=== PATIENT | male | born 1995 | race Caucasian/White ===

== ENCOUNTER 2017-03-15 10:49 | Emergency (ER) | payer MEDICAID ==
[~2017-03-15] VITALS: Ht 172.7 cm; Wt 72.6 kg
[2017-03-15 11:11] VITALS: BP 127/81
--- NOTE | 2017-03-15 12:50 | NUR ---
Patient ambulated to bed 03.
--- NOTE | 2017-03-15 12:59 | NUR ---
PATIENT PRESENTS TO ED WITH umbilical region pain radiating straight back, sharp pain . PT STATES +nausea, no emesis; SKIN IS PINK/WARM/DRY; AAOX4 WITH EVEN AND STEADY GAIT; LUNGS CLEAR BL; HR EVEN AND REGULAR; PT DENIES ANY FEVER, CP, SOB, OR COUGH AT THIS TIME; PATIENT STATES PAIN OF 8/10 AT THIS TIME; VSS; PATIENT POSITIONED FOR COMFORT; HOB ELEVATED; BEDRAILS UP X2; BED DOWN. ER MD MADE AWARE OF PT STATUS.
--- NOTE | 2017-03-15 13:44 | NUR ---
Dr. Sifuentes evaluating patient at bedside.
[2017-03-15] MEDS ORDERED: KETOROLAC 30 MG/ML VIAL IVP ONE (13:50)
[2017-03-15] MEDS ORDERED: ONDANSETRON 4 MG/2 ML VIAL IVP ONE (13:50)
[2017-03-15] MEDS ORDERED: NACL 0.9% 1,000 ML IV ONE (13:50)
[2017-03-15] MEDS ORDERED: HYDROmorphone 1 MG/ML AMP IVP ONE (13:50)
--- NOTE | 2017-03-15 14:06 | NUR ---
Patient going to CT via [facility].
--- NOTE | 2017-03-15 14:14 | NUR ---
Patient back from CT via [facility].
--- NOTE | 2017-03-15 14:16 | NUR ---
pt holding conversation on cell phone---pt states no pain at this time. awaits ct read
--- NOTE | 2017-03-15 15:03 | NUR ---
pt is up for dc but waiting for md to print out dc papers
[2017-03-15 16:01] VITALS: BP 129/77
--- NOTE | 2017-03-15 16:01 | NUR ---
Patient discharged with v/s stable. Written and verbal after care instructions given and explained. Patient alert, oriented and verbalized understanding of instructions. Ambulatory with steady gait. All questions addressed prior to discharge. ID band removed. Patient advised to follow up with PMD. Rx of cipro/percocet/zofran given. Patient educated on indication of medication including possible reaction and side effects. Opportunity to ask questions provided and answered.
== END 2017-03-15 16:01 | disposition home or self-care (01) ==
LOC: MED 10:49
DX: M51.26 Other intervertebral disc displacement, lumbar region (principal); N39.0 Urinary tract infection, site not specified
CPT/HCPCS: 36415; 74176; 80053; 81001; 82150; 83690; 85025; 87491; 96361; 96374; 96375; 99285; J1170; J1885; J2405

== ENCOUNTER 2017-03-15 23:26 | Emergency (ER) | payer MEDICAID ==
[~2017-03-15] VITALS: Ht 175.3 cm; Wt 72.6 kg
[2017-03-16 01:20] LABS: MEAN CORPUSCULAR HEMOGLOBIN 30 pg (27-31); MEAN CORPUSCULAR HGB CONC 33 g/dL (33-37); MEAN CORPUSCULAR VOLUME 91 fL (80-94); PLATELET COUNT (AUTO) 227 K/uL (140-450); RED BLOOD CELL COUNT(AUTO) 4.94 MIL/uL (4.20-6.10); RED CELL DISTRIBUTION WIDTH 12.1 % (11.6-13.7)
[2017-03-16 01:20] LABS: APPEARANCE,URINE CLOUDY (CLEAR); BILIRUBIN,URINE NEGATIVE (NEGATIVE); BLOOD, URINE NEGATIVE (NEGATIVE); COLOR,URINE YELLOW (YELLOW); LEUKOCYTE ESTERASE ,URINE NEGATIVE (NEGATIVE); NITRITE, URINE NEGATIVE (NEGATIVE); PROTEIN,URINE NEGATIVE (NEGATIVE); UGLUCOSE NEGATIVE (NEGATIVE); UROBILINOGEN,URINE 0.2 EU/dL (0.2 - 1)
--- NOTE | 2017-03-16 01:35 | NUR ---
TO ER BED 8
--- NOTE | 2017-03-16 01:38 | NUR ---
21 Y/O M W/C/O LOWER BACK PAIN THAT RADIATES TO ABD X 2 DAYS. DENIES ANY PAIN WITH URINATION, FEVER OR CHILLS. ER MADE AWARE.
[2017-03-16 01:39] LABS: ALBUMIN 3.9 g/dL (3.4-5.0); ANION GAP 12.6 (8-16); CARBON DIOXIDE 28.4 mmol/L (21-32); CREATININE 1.1 mg/dL (0.6-1.3); TOTAL BILIRUBIN 0.7 mg/dL (0.0-1.0); TOTAL PROTEIN, SERUM 7.4 g/dL (6.4-8.2)
[2017-03-16 01:48] LABS: BAND % (MANUAL) 11 % (0-8); LYMPHOCYTES % (MANUAL) 15 % (20-46); MONOCYTES % (MANUAL) 4 % (5-12); NEUTROPHILS % (MANUAL) 70 (43-65)
[2017-03-16] MEDS: MORPHINE SULFATE 4 MG/ML SYR IVP ONE (02:38)
[2017-03-16] MEDS: HYDROmorphone 1 MG/ML AMP IVP ONE (04:12)
--- NOTE | 2017-03-16 05:28 | NUR ---
PT SLEEPING, NO S/S OF PSIN OR DISTRESS NOTED AT THE MOMENT.
[2017-03-16 05:54] VITALS: BP 136/83
--- NOTE | 2017-03-16 05:54 | NUR ---
Patient discharged with v/s stable. Written and verbal after care instructions given and explained. Patient alert, oriented and verbalized understanding of instructions. Ambulatory with to car. All questions addressed prior to discharge. ID band removed. Patient advised to follow up with PMD OR RETURN BACK TO ER IF CONDITION WORSENS. Rx of OMEPRAZOLE given. Patient educated on indication of medication including possible reaction and side effects. Opportunity to ask questions provided and answered.
== END 2017-03-16 05:54 | disposition home or self-care (01) ==
LOC: MED 23:26
DX: K29.70 Gastritis, unspecified, without bleeding (principal); D72.829 Elevated white blood cell count, unspecified; F17.210 Nicotine dependence, cigarettes, uncomplicated; Z90.89 Acquired absence of other organs
CPT/HCPCS: 36415; 76700; 80053; 81003; 82150; 83605; 83690; 85025; 87040; 96374; 96375; 99285; J1170; J2270; Q0092

== ENCOUNTER 2017-10-24 21:46 | Emergency (ER) | payer SELFPAY ==
[~2017-10-24] VITALS: Ht 175.3 cm; Wt 72.6 kg
--- NOTE | 2017-10-24 22:00 | NUR ---
Romel magaña in ED - 10/24/17 at 2212 by [employer] PATIENT CALLED TO BE TRIAGE NO RESPONSE. PATIENT LEFT WITHOUT BEING SEEN BY DR. WHEAT. NO FURTHER CARE PROVIDED FOR PATIENT.
[2017-10-24 22:12] VITALS: BP 150/80
--- NOTE | 2017-10-24 22:17 | NUR ---
TO LOBBY , [facility]TAG[facility]ACIA GEORGE, A/W BED, [facility] NOTED
--- NOTE | 2017-10-25 00:03 | NUR ---
PT TAKEN TO OF
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
[2017-10-25] MEDS ORDERED: KETOROLAC 60 MG/2 ML VIAL IM ONE (00:35)
--- NOTE | 2017-10-25 00:51 | NUR ---
IM MEDS GIVEN-NADR AT THIS TIME
[2017-10-25 01:18] VITALS: BP 132/93
--- NOTE | 2017-10-25 01:18 | NUR ---
Patient discharged with v/s stable. Written and verbal after care instructions given and explained. Patient verbalized understanding. Ambulatory with steady gait. All questions addressed prior to discharge. Advised to follow up with PMD. DISCHARGED BY DR WHEAT
== END 2017-10-25 01:18 | disposition home or self-care (01) ==
LOC: MED 21:46
DX: R51 Headache (principal); R03.0 Elevated blood-pressure reading, without diagnosis of hypertension
CPT/HCPCS: 96372; 99283; J1885

== ENCOUNTER 2019-02-15 12:03 | Emergency (ER) | payer MEDICAID, OTHER ==
[~2019-02-15] VITALS: Ht 172.7 cm; Wt 83.5 kg
[2019-02-15 12:09] VITALS: BP 124/84
--- NOTE | 2019-02-15 12:23 | NUR ---
PT BIB SELF C/O LACERATION TO RT THUMB. 1.5CM LACERATION ON POSTERIOR THUMB, PT REPORTS NON-RADIATING SHARP PAIN AT 7/10 THAT INCREASES WITH THUMB MOVEMENT. PT STATES HE PUT HAND THROUGH WINDOW ABOUT 1 HOUR AGO TO BRACE HIMSELF BECAUSE HE WAS DIZZY BECAUSE HE DRANK TOO MUCH COFFEE. BLEEDING CONTROLLED. PT REPORTS GLASS MIGHT BE IN LACERATION. VSS. ER TO SEE PT. MEDHX:DEPRESSION RX:WELLBUTRIN
[2019-02-15] MEDS ORDERED: BACITRACIN OINT 500 UNITS/GM PKT TP ONE (13:35)
[2019-02-15] MEDS ORDERED: LIDOCAINE 1% ***ER ONLY *** 10 MG/ML VIAL INJ ONE (13:35)
[2019-02-15] MEDS ORDERED: LIDOCAINE MPF 1% 5mL VIAL ONE (13:46)
--- NOTE | 2019-02-15 13:57 | NUR ---
ER MD AT BEDSIDE PERFORMING BEDSIDE PROCEDURE. PT REPORTS SLIGHT PAIN AT 3/10. VSS.
[2019-02-15 14:34] VITALS: BP 139/92
== END 2019-02-15 14:34 | disposition home or self-care (01) ==
LOC: MED 12:03
DX: S61.011A Laceration without foreign body of right thumb without damage to nail, initial encounter (principal); W18.09XA Striking against other object with subsequent fall, initial encounter; Y93.89 Activity, other specified; Y92.89 Other specified places as the place of occurrence of the external cause; Y99.8 Other external cause status
CPT/HCPCS: 12001; 99283; J2001

== ENCOUNTER 2022-12-15 10:22 | Emergency (ER) | payer OTHER ==
[~2022-12-15] VITALS: Ht 177.8 cm; Wt 86.2 kg
[2022-12-15 10:38] VITALS: BP 141/84
[2022-12-15] MEDS ORDERED: KETOROLAC 15 MG/ML VIAL IM ONE (10:50)
[2022-12-15] MEDS ORDERED: CYCLOBENZAPRINE 10 MG TAB PO ONE (10:50)
--- NOTE | 2022-12-15 10:50 | NUR ---
pt ambulated to bed 06
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
[2022-12-15] MEDS ORDERED: ACET-10509 PO (11:07)
--- NOTE | 2022-12-15 11:33 | NUR ---
Patient discharged with v/s stable. Written and verbal after care instructions given and explained. Patient alert, oriented and verbalized understanding of instructions. Ambulatory with steady gait. All questions addressed prior to discharge. ID band removed. Patient advised to follow up with PMD. Rx of ACETAMINOPHEN TAB given. Opportunity to ask questions provided and answered.
--- NOTE | 2022-12-15 11:34 | NUR ---
The patient's care was reviewed and supervised by Jael Ybarra, RN, RN.
== END 2022-12-15 11:33 | disposition home or self-care (01) ==
LOC: MED 10:22
DX: S09.90XA Unspecified injury of head, initial encounter (principal); M54.2 Cervicalgia; M54.6 Pain in thoracic spine; Z79.899 Other long term (current) drug therapy; V89.2XXA Person injured in unspecified motor-vehicle accident, traffic, initial encounter; Y93.89 Activity, other specified; Y92.410 Unspecified street and highway as the place of occurrence of the external cause; Y99.8 Other external cause status
CPT/HCPCS: 96372; 99283; J1885

== ENCOUNTER 2023-05-12 10:58 | Emergency (ER) | payer OTHER ==
[~2023-05-12] VITALS: Ht 180.3 cm; Wt 86.2 kg
[~2023-05-12 10:58] MED LIST: ACET-10509 PO
--- NOTE | 2023-05-12 11:31 | NUR ---
PT RETURNED TO LOBBY AT THIS TIME
[2023-05-12 11:32] VITALS: BP 142/96; PULSE 72; RESP 16; TEMP 97.6; O2SAT 98
[2023-05-12] MEDS ORDERED: KETOROLAC 15 MG/ML VIAL IVP ONE (13:05)
[2023-05-12] MEDS ORDERED: diphenhydrAMINE 50 MG/ML VIAL IVP ONE (13:05)
[2023-05-12] MEDS ORDERED: NACL 0.9% 1,000 ML IV ONE (13:05)
[2023-05-12] MEDS ORDERED: PROCHLORPERAZINE 10 MG/2 ML VIAL IVP ONE (13:05)
--- NOTE | 2023-05-12 14:15 | NUR ---
IV removed, catheter intact and site benign. Applied folded 4x4 gauze and tape to stop bleeding.
[2023-05-12 14:20] VITALS: BP 138/88; PULSE 72; RESP 16; TEMP 98.3; O2SAT 99
--- NOTE | 2023-05-12 14:20 | NUR ---
Patient discharged with v/s stable. Written and verbal after care instructions FOR MIFRAINE HEADACHE given and explained. Patient verbalized understanding. Ambulatory with steady gait. All questions addressed prior to discharge. Advised to follow up with PMD.
--- NOTE | 2023-05-12 14:20 | NUR ---
The patient's care was reviewed and supervised by Johnny Taylor RN.
== END 2023-05-12 14:20 | disposition home or self-care (01) ==
LOC: MED 10:58
DX: R51.9 Headache, unspecified (principal); Z79.899 Other long term (current) drug therapy
CPT/HCPCS: 96374; 96375; 99284; J0780; J1200; J1885; J7030

== ENCOUNTER 2023-10-07 17:10 | Emergency (ER) | payer OTHER ==
[~2023-10-07] VITALS: Ht 175.3 cm; Wt 77.1 kg
[2023-10-07 17:17] VITALS: BP 146/97; PULSE 120; TEMP 97; O2SAT 98
[2023-10-07] MEDS ORDERED: ACETAMINOPHEN EXTRA STRENGTH 500 MG TAB PO ONE (17:40)
[2023-10-07 18:00] LABS: APPEARANCE,URINE CLEAR (CLEAR); BILIRUBIN,URINE NEGATIVE (NEGATIVE); BLOOD, URINE 1+ (NEGATIVE); COLOR,URINE YELLOW (YELLOW); LEUKOCYTE ESTERASE ,URINE 2+ (NEGATIVE); NITRITE, URINE NEGATIVE (NEGATIVE); PROTEIN,URINE NEGATIVE (NEGATIVE); UGLUCOSE NEGATIVE (NEGATIVE); UROBILINOGEN,URINE 0.2 EU/dL (0.2 - 1)
[2023-10-07 18:15] LABS: BACTERIA,URINE 1+ /HPF (None Seen); MUCUS,URINE 1+ /LPF (None Seen); TRICHOMONAS,URINE None Seen /HPF (None Seen); WBC,URINE 20-60 /HPF (0-5); YEAST,URINE None Seen /HPF (None Seen)
[2023-10-07] MEDS ORDERED: cefTRIAXone 1,000 MG in LIDOCAINE MPF 1% 2.1 ML IM ONE (18:45)
[2023-10-07] MEDS ORDERED: ACET-10509 PO (18:46)
[2023-10-07] MEDS ORDERED: CIPR500T4 PO (18:46)
[2023-10-07] MEDS ORDERED: LIDOCAINE MPF 1% 5 ML ONE (18:48)
[2023-10-07] MEDS ORDERED: cefTRIAXone 1,000 MG VIAL ONE (18:48)
[2023-10-07 19:03] VITALS: PULSE 91; RESP 18; TEMP 97.8; O2SAT 98
[2023-10-09] MEDS ORDERED: AMOX1TAB8 PO (12:42)
== END 2023-10-07 19:03 | disposition home or self-care (01) ==
LOC: MED 17:10
DX: N39.0 Urinary tract infection, site not specified (principal); F17.200 Nicotine dependence, unspecified, uncomplicated; Z79.899 Other long term (current) drug therapy; Z79.2 Long term (current) use of antibiotics
CPT/HCPCS: 81001; 87086; 87491; 96372; 99283; J0696; J2001

== ENCOUNTER 2023-11-10 10:46 | Emergency (ER) | payer OTHER ==
[~2023-11-10] VITALS: Ht 175.3 cm; Wt 83.9 kg
[~2023-11-10 10:46] MED LIST changes: +AMOX1TAB8 PO; +CIPR500T4 PO
[2023-11-10 10:54] VITALS: BP 142/91; PULSE 112; RESP 18; TEMP 98.7; O2SAT 97
[2023-11-10] MEDS ORDERED: NACL 0.9% 1,000 ML IV SCH (11:25)
[2023-11-10] MEDS ORDERED: KETOROLAC 30 MG/ML VIAL IVP ONE (11:30)
[2023-11-10] MEDS ORDERED: PIPERACILLIN/TAZOBACTAM 3.375 GM in DEXTROSE 5% 50 ML IV ONE (11:30)
[2023-11-10] MEDS ORDERED: PIPERACILLIN/TAZOBACTAM 3.375 GM VIAL IV ONE (11:33)
[2023-11-10 12:01] LABS: APPEARANCE,URINE SL CLOUDY (CLEAR); BILIRUBIN,URINE NEGATIVE (NEGATIVE); BLOOD, URINE TRACE-I (NEGATIVE); COLOR,URINE YELLOW (YELLOW); LEUKOCYTE ESTERASE ,URINE 2+ (NEGATIVE); NITRITE, URINE POSITIVE (NEGATIVE); PROTEIN,URINE NEGATIVE (NEGATIVE); UGLUCOSE NEGATIVE (NEGATIVE); UROBILINOGEN,URINE 0.2 EU/dL (0.2 - 1)
[2023-11-10 12:03] LABS: BASOPHILS % (AUTO) 0.4 % (0.0-2.0); EOSINOPHILS % (AUTO) 0.1 % (0.0-4.0); HEMATOCRIT 46.7 % (36-52); HEMOGLOBIN 16.3 g/dL (12.0-18.0); LYMPHOCYTES # (AUTO) 1.5 K/uL (2.0-11.5); LYMPHOCYTES % (AUTO) 14.8 % (20.5-51.1); MEAN CORPUSCULAR HEMOGLOBIN 31 pg (27-31); MEAN CORPUSCULAR HGB CONC 35 g/dL (33-37); MEAN CORPUSCULAR VOLUME 88.3 fL (80-94); MONOCYTES % (AUTO) 9.7 % (1.7-9.3); NEUTROPHILS # (AUTO) 7.8 K/uL (1.8-7.7); PLATELET COUNT (AUTO) 277 K/uL (140-450); RED BLOOD CELL COUNT(AUTO) 5.28 MIL/uL (4.20-6.10); RED CELL DISTRIBUTION WIDTH 13.3 % (11.6-13.7); WHITE BLOOD COUNT (AUTO) 10.4 K/uL (4.8-10.8)
[2023-11-10 12:09] LABS: RBC,URINE 0-5 /HPF (0-5)
[2023-11-10 12:10] LABS: BACTERIA,URINE 2+ /HPF (None Seen); MUCUS,URINE None Seen /LPF (None Seen); SQUAMOUS EPITHELIAL CELL,UR 0-3 (FEW) /LPF (0-3 (FEW))
[2023-11-10 12:24] LABS: ANION GAP 10.9 (8-16); CALCIUM 9.4 mg/dL (8.5-10.1); CARBON DIOXIDE 26.9 mmol/L (21-32); CREATININE 1.2 mg/dL (0.6-1.3); POTASSIUM 3.8 mmol/L (3.5-5.1)
[2023-11-10 12:28] LABS: ALBUMIN 3.7 g/dL (3.4-5.0); BILIRUBIN,DIRECT 0.2 mg/dL (0.0-0.3); TOTAL BILIRUBIN 1.1 mg/dL (0.0-1.0); TOTAL PROTEIN, SERUM 9.6 g/dL (6.4-8.2)
[2023-11-10 12:33] LABS: LACTIC ACID 0.9 mmol/L (0.4-2.0)
[2023-11-10] MEDS ORDERED: AMOX1TAB8 PO (14:37)
[2023-11-10] MEDS ORDERED: MELO-176 PO (14:37)
[2023-11-10 14:56] VITALS: BP 139/91; PULSE 85; RESP 18; TEMP 98.7; O2SAT 100
== END 2023-11-10 14:56 | disposition home or self-care (01) ==
LOC: MED 10:46
DX: N39.0 Urinary tract infection, site not specified (principal); N13.6 Pyonephrosis; Z79.899 Other long term (current) drug therapy
CPT/HCPCS: 36415; 71045; 74176; 80048; 80076; 81001; 83605; 85025; 87086; 93005; 96365; 96375; 99285; J1885; J2543; J7030; Q0092